=== PATIENT | female | born 1970 | race African-American/Black ===

== ENCOUNTER 2016-09-03 15:10 | Emergency (ER) | payer OTHER ==
--- NOTE | ~2016-09-03 | CR94 ---
[facility] A Service of [facility] RADIOLOGY TEXT RESULTS PATIENT: JILLIAN BAIRD LOCATION: [facility] : 72 UNIT #: [id number] AGE: [address]: Edith Diaz SEX: F ORDER DR: [id number] [facility] [address] [place], [place] [address] [id number] E MR#: [id number] Acc #: [id number] NAME: JILLIAN BAIRD : 1970 SEX: F STUDY DATE/TIME: 09/03/2016 14:57 UNIT: [facility] ROOM: STUDY DESCRIPTION: CR Elbow Min 3 Views Rt Attending Physician: Edith Diaz P.A.-C. Ordering Physician: Edith Diaz P.A.-C. Primary Care Physician: Daphnie Lemos M.D. MEDICAL IMAGING REPORT This report is preliminary unless electronic signature is present EXAM Right elbow, 09/03/2016. HISTORY 45-year-old female with right wrist pain and elbow pain today after a fall. The majority of the pain is in the right elbow. TECHNIQUE 3 views of the right elbow. COMPARISON STUDIES There are no comparisons. FINDINGS There is a posterior fat pad and an anterior joint effusion. There is a subtle complete nondisplaced fracture involving the radial head along its anterior margin on the lateral projection. Mild degenerative change in the right elbow. No additional fracture. IMPRESSION Complete nondisplaced radial head fracture. Associated joint effusion in the right elbow. STAT * RESULT Dictated by... Dragan Moncada M.D. THIS IS AN ELECTRONICALLY VERIFIED REPORT Dragan Moncada M.D. at 09/03/2016 3:58 PM CARLO/sofia [facility] A Service of [facility] RADIOLOGY TEXT RESULTS PATIENT: JILLIAN BAIRD LOCATION: [facility] #: [id number] : 72 UNIT #: [id number] AGE: [address]: Edith Diaz SEX: F ORDER DR: TD: 09/03/2016 15:31 JOB #: [id number] MEDICAL IMAGING REPORT COPY
--- NOTE | ~2016-09-03 | CR157 ---
[facility] A Service of [facility] RADIOLOGY TEXT RESULTS PATIENT: JILLIAN BAIRD LOCATION: [facility] : 71 UNIT #: [id number] AGE: [address]: Edith Diaz SEX: F ORDER DR: [id number] [facility] [address] [place], [place] [address] [id number] E MR#: [id number] Acc #: [id number] NAME: JILLIAN BAIRD : 1970 SEX: F STUDY DATE/TIME: 09/03/2016 14:52 UNIT: [facility] ROOM: STUDY DESCRIPTION: CR Humerus Min 2 View Rt Attending Physician: Edith Diaz P.A.-C. Ordering Physician: Edith Diaz P.A.-C. Primary Care Physician: Daphnie Lemos M.D. MEDICAL IMAGING REPORT This report is preliminary unless electronic signature is present EXAM Right humerus 2 views, 09/03/2016 HISTORY Right upper extremity pain status post fall today with swelling. FINDINGS 2 views of the right humerus demonstrate a fracture involving the radial head. No other fracture or dislocation is seen. The bones are normally mineralized. There is no soft tissue abnormality. IMPRESSION Nondisplaced fracture involving the radial head. Dictated by... Sudarshan Ocampo M.D. THIS IS AN ELECTRONICALLY VERIFIED REPORT Sudarshan Ocampo M.D. at 09/04/2016 10:49 AM CARMELA/doris TD: 09/03/2016 22:33 JOB #: [id number] MEDICAL IMAGING REPORT COPY
--- NOTE | ~2016-09-03 | CR279 ---
[facility] A Service of [facility] RADIOLOGY TEXT RESULTS PATIENT: JILLIAN BAIRD LOCATION: [facility] : 72 UNIT #: [id number] AGE: [address]: Edith Diaz SEX: F ORDER DR: [id number] [facility] [address] [place], [place] [address] [id number] E MR#: [id number] Acc #: [id number] NAME: JILLIAN BAIRD : 1970 SEX: F STUDY DATE/TIME: 09/03/2016 14:56 UNIT: [facility] ROOM: STUDY DESCRIPTION: CR Wrist 2 View Rt Attending Physician: Edith Diaz P.A.-C. Ordering Physician: Edith Diaz P.A.-C. Primary Care Physician: Daphnie Lemos M.D. MEDICAL IMAGING REPORT This report is preliminary unless electronic signature is present EXAM Right wrist, 09/03/2016 INDICATIONS 45-year-old female with trauma, fell, pain in the right wrist, elbow and humerus. TECHNIQUE 4 views of the right wrist to include a navicular view performed. No comparisons. FINDINGS The examination is negative. No acute fracture identified. Scaphoid intact. No significant degenerative change. IMPRESSION 1. Negative. Dictated by... Dragan Moncada M.D. THIS IS AN ELECTRONICALLY VERIFIED REPORT Dragan Moncada M.D. at 09/04/2016 7:39 AM CARLO/robert TD: 09/03/2016 22:39 JOB #: [id number] MEDICAL IMAGING REPORT COPY
--- NOTE | ~2016-09-03 | CR133 ---
[facility] A Service of [facility] RADIOLOGY TEXT RESULTS PATIENT: JILLIAN BAIRD LOCATION: [facility] : 72 UNIT #: [id number] AGE: [address]: Edith Diaz SEX: F ORDER DR: [id number] [facility] [address] [place], [place] [address] [id number] E MR#: [id number] Acc #: [id number] NAME: JILLIAN BAIRD : 1970 SEX: F STUDY DATE/TIME: 09/03/2016 14:55 UNIT: [facility] ROOM: STUDY DESCRIPTION: CR Forearm 2 View Rt Attending Physician: Edith Diaz P.A.-C. Ordering Physician: Edith Diaz P.A.-C. Primary Care Physician: Daphnie Lemos M.D. MEDICAL IMAGING REPORT This report is preliminary unless electronic signature is present EXAM Right forearm, 09/03/2016 INDICATION 45-year-old female with pain in the right forearm after a fall today. Pain mostly in the elbow. Swelling. TECHNIQUE 2 views of the right forearm, no comparisons. FINDINGS Findings are suspicious for a nondisplaced radial head fracture best seen on the frontal projection. Please see the dedicated elbow series for further details. Probable small elbow joint effusion. There are degenerative changes in the elbow joint. No additional fracture. IMPRESSION 1. Findings suspicious for a subtle nondisplaced radial head fracture. Please see the elbow series for further details. 2. Degenerative change of the right elbow to a mild degree. Dictated by... Dragan Moncada M.D. THIS IS AN ELECTRONICALLY VERIFIED REPORT Dragan Moncada M.D. at 09/04/2016 7:39 AM CARLO/doris TD: 09/03/2016 22:27 JOB #: [id number] MEDICAL IMAGING REPORT [facility] A Service of [facility] RADIOLOGY TEXT RESULTS PATIENT: BAIRD,JILLIAN LOCATION: [facility] #: [id number] : 72 UNIT #: [id number] AGE: [address]: Edith Diaz SEX: F ORDER DR: MADI
== END 2016-09-03 15:58 | disposition home or self-care (01) ==
LOC: CED 15:10
DX: S52.124A Nondisplaced fracture of head of right radius, initial encounter for closed fracture (principal); I10 Essential (primary) hypertension; Z88.1 Allergy status to other antibiotic agents; W20.8XXA Other cause of strike by thrown, projected or falling object, initial encounter; Y92.69 Other specified industrial and construction area as the place of occurrence of the external cause
CPT/HCPCS: 29105; 73060; 73080; 73090; 73100; 84703; 99284